=== PATIENT | male | born 1985 | race Caucasian/White ===

== ENCOUNTER 2019-08-18 15:53 | Emergency (ER) | payer OTHER ==
[~2019-08-18] VITALS: Ht 177.8 cm; Wt 65.8 kg
[2019-08-18 15:55] VITALS: Ht 177.8 cm; Wt 65.8 kg
[2019-08-18 16:33] LABS: BASOPHIL % 0.4 % (0-2); PLATELET COUNT 316 x10^3mcL (130-400); RED CELL DISTRIBUTION WIDTH 12.2 % (11.5-14.5)
[2019-08-18 16:40] LABS: CARBON DIOXIDE 28.5 mmol/L (21-32); CHLORIDE SERUM 102 mmol/L (98-107); CREATININE SERUM 1.1 mg/dL (0.7-1.3); GFR1 > 60 mL/min; GLUCOSE SERUM 96 mg/dL (74-106); POTASSIUM SERUM 3.6 mmol/L (3.5-5.1); SODIUM SERUM 136 mmol/L (136-145)
[2019-08-18 16:44] LABS: ALBUMIN 3.9 g/dL (3.4-5.0); ALKALINE PHOSPHATASE 55 U/L (46-116); ALT/SGPT 53 U/L (16-63); AST/SGOT 31 U/L (15-37)
[2019-08-18 17:30] LABS: AMPHETAMINE QUAL UR POSITIVE (See below)
[2019-08-18 18:56] VITALS: BP 124/94
== END 2019-08-18 18:56 | disposition home or self-care (01) ==
LOC: ED 15:53
PROVIDERS: Emergency Medicine
DX: G93.41 Metabolic encephalopathy (principal); T50.7X1A Poisoning by analeptics and opioid receptor antagonists, accidental (unintentional), initial encounter; Y92.89 Other specified places as the place of occurrence of the external cause; F15.10 Other stimulant abuse, uncomplicated
CPT/HCPCS: 36415; G0480; J7030